=== PATIENT | female | born 1930 | race Caucasian/White ===

== ENCOUNTER 2017-04-12 11:48 | Emergency (ER) | payer MEDICARE, BC ==
[2017-04-12] MEDS ORDERED: Sodium Chloride 0.9% 10 ML Syringe FLUSH PRN (12:49)
[2017-04-12] MEDS ORDERED: fentaNYL 100 MCG/2 ML SDV IVPUSH ONE ×2 (12:50→15:28)
[2017-04-12] MEDS ORDERED: LORazepam 2 MG/ML MDV IVPUSH ONE (12:51)
--- NOTE | 2017-04-12 15:24 | EDM.PDOC ---
ED HPI GENERAL MEDICAL PROBLEM - General Chief Complaint: Upper Extremity Injury/Pain Stated Complaint: R shoulder pain post fall Time Seen by Provider: 04/12/17 11:55 Source of Information: Reports: Patient History Limitations: Reports: No Limitations - History of Present Illness INITIAL COMMENTS - FREE TEXT/NARRATIVE: Pt. was going to get her hair done and tripped, falling forward. She states that her arms were outstretched and denies striking her head. She states that the tip of her nose struck the edge of the counter, but states it was only the soft tissue. She denies any facial bone injury or neck pain. Pt. states that her only complaint is that of severe R shoulder pain. Pt. is scheduled to have a L total knee replacement performed by Dr. Horowitz at [place] [facility]: Today Location: Reports: Upper Extremity, Right Quality: Reports: Sharp, Stabbing Severity: Severe Improves with: Reports: Immobilization Worsens with: Reports: Movement Context: Reports: Trauma - Related Data Allergies Allergy/AdvReac Type Severity Reaction Status Date / Time aspirin Allergy Other Verified 04/12/17 12:03 naproxen [From Aleve] Allergy Other Verified 04/12/17 12:03 Home Meds: Home Meds Acetaminophen/HYDROcodone [[place] 325-5 MG] 1 tab PO Q6H PRN 04/12/17 [History] Alendronate Sodium [Fosamax] 70 mg PO Q7D 04/12/17 [History] Calcium Carbonate/Vitamin D3 [Calcium 500 + Vit D 200 Caplet] 2 each PO ACBREAKFAST 04/12/17 [History] Fish Oil/[place]-3 Fatty Acids [Fish Oil] 1 each PO DAILY 04/12/17 [History] Hydrochlorothiazide 25 mg PO DAILY 04/12/17 [History] Levothyroxine 112 mcg PO DAILY 04/12/17 [History] Meloxicam [Mobic] 7.5 mg PO DAILY PRN 04/12/17 [History] Multivitamin with Minerals [Multiple Vitamin] 1 tab PO DAILY 04/12/17 [History] Potassium Chloride 20 meq PO DAILY 04/12/17 [History] amLODIPine [Norvasc] 10 mg PO BEDTIME 04/12/17 [History] Past Medical History Cardiovascular History: Reports: Hypertension - Past Surgical History Musculoskeletal Surgical History: Reports: Knee Replacement Social & Family History - Tobacco Use Smoking Status *Q: Unknown Ever Smoked Review of Systems - Review of Systems Review Of Systems: See Below Constitutional: Reports: No Symptoms Eyes: Reports: No Symptoms Ears: Reports: No Symptoms Nose: Reports: Epistaxis, Other (hit tip of nose on counter) Mouth/Throat: Reports: No Symptoms Respiratory: Reports: No Symptoms Cardiovascular: Reports: No Symptoms GI/Abdominal: Reports: No Symptoms Genitourinary: Reports: No Symptoms Musculoskeletal: Reports: Shoulder Pain (R shoulder pain) Skin: Reports: No Symptoms Neurological: Reports: No Symptoms Psychiatric: Reports: No Symptoms ED EXAM, GENERAL - Physical Exam Exam: See Below General Appearance: Alert, WD/WN, No Apparent Distress Nose: Normal Inspection, Normal Mucosa, Other (mild dried blood from L nare with evidence of previous epistaxis from that nare). No: Nasal Tenderness Head: Atraumatic, Normocephalic Neck: Normal Inspection, Supple, Non-Tender, Full Range of Motion Respiratory/Chest: No Respiratory Distress, Lungs Clear, Normal Breath Sounds, No Accessory Muscle Use, Chest Non-Tender Cardiovascular: Normal Peripheral Pulses, Regular Rate, Rhythm, No Edema, No Gallop, No JVD, No Murmur, No Rub Peripheral Pulses: 3+: Brachial (L), Brachial (R), Radial (L), Radial (R) Back Exam: Normal Inspection, Full Range of Motion, NT Extremities: Normal Inspection, Normal Range of Motion, Non-Tender, Normal Capillary Refill, No Pedal Edema Neurological: Alert, Oriented, CN II-XII Intact, Normal Cognition, Normal Gait, Normal Reflexes, No Motor/Sensory Deficits Psychiatric: Normal Affect, Normal Mood Skin Exam: Warm, Dry, Intact, Normal Color, No Rash Course - Vital Signs Last Recorded V/S: Last Vital Signs Temp 35.9 C 04/12/17 11:50 Pulse 75 04/12/17 14:29 Resp 14 04/12/17 14:29 BP 126/74 04/12/17 14:29 Pulse Ox 97 04/12/17 14:29 - Orders/Labs/Meds Orders: Active Orders 24 hr Category Date Time Status Shoulder 1V Rt [CR] Stat Exams 04/12/17 13:49 Taken Shoulder Comp Rt [CR] Stat Exams 04/12/17 12:22 Taken Sodium Chloride 0.9% [Saline Flush] Med 04/12/17 12:49 Active 10 ml FLUSH ASDIRECTED PRN Peripheral IV Insertion Adult [OM.PC] Routine Oth 04/12/17 12:50 Ordered Medication Orders Sodium Chloride (Saline Flush) 10 ml FLUSH ASDIRECTED PRN PRN Reason: Keep Vein Open Meds: Medications Generic Name Dose Route Start Last Admin Trade Name Freq PRN Reason Stop Dose Admin Sodium Chloride 10 ml 04/12/17 12:49 Saline Flush FLUSH ASDIRECTED PRN Keep Vein Open Discontinued Medications Generic Name Dose Route Start Last Admin Trade Name Freq PRN Reason Stop Dose Admin Fentanyl 50 mcg 04/12/17 12:50 04/12/17 13:06 Sublimaze IVPUSH 04/12/17 12:51 50 mcg ONETIME ONE Administration Fentanyl 100 mcg 04/12/17 15:28 Sublimaze IVPUSH 04/12/17 15:29 ONETIME ONE Lorazepam 1 mg 04/12/17 12:51 04/12/17 13:07 Ativan IVPUSH 04/12/17 12:52 1 mg ONETIME ONE Administration Departure - Departure Time of Disposition: 15:05 Disposition: Home, Self-Care 01 Condition: Good Clinical Impression: Closed anterior dislocation of right shoulder - Discharge Information Instructions: Shoulder Dislocation, [id number] Referrals: Radha Fontanez MD [Primary Care Provider] - Forms: ED Department Discharge Additional Instructions: Keep sling on for 10 days, unless changing clothes or bathing. Use your [place] tablets for pain control. You will be sleepy for a few hours due to the medications that you were given. You can probably follow-up with your orthopedic surgeon for this dislocation at your post op recheck. Otherwise, follow-up with your primary care provider in 10 -14 days. - My Orders Last 24 Hours: My Active Orders 04/12/17 12:22 Shoulder Comp Rt [CR] Stat 04/12/17 12:49 Sodium Chloride 0.9% [Saline Flush] 10 ml FLUSH ASDIRECTED PRN 04/12/17 12:50 Peripheral IV Insertion Adult [OM.PC] Routine 04/12/17 13:49 Shoulder 1V Rt [CR] Stat - Assessment/Plan Last 24 Hours: My Active Orders 04/12/17 12:22 Shoulder Comp Rt [CR] Stat 04/12/17 12:49 Sodium Chloride 0.9% [Saline Flush] 10 ml FLUSH ASDIRECTED PRN 04/12/17 12:50 Peripheral IV Insertion Adult [OM.PC] Routine 04/12/17 13:49 Shoulder 1V Rt [CR] Stat Assessment:: R anterior shoulder dislocation Plan: I did attempt to call Dr. Horowitz to alert him about this incident. He is scheduled to replace her L knee next week. Obviously, the pt. will need to use a walker post-op which will be impossible for the next 10-14 days as she is currently in a sling. I am awaiting his phone call at this time.
== END 2017-04-12 15:05 | disposition home or self-care (01) ==
LOC: VM.ED 11:48
DX: S43.014A Anterior dislocation of right humerus, initial encounter (principal); I10 Essential (primary) hypertension; Z88.8 Allergy status to other drugs, medicaments and biological substances; Z88.6 Allergy status to analgesic agent; Z79.899 Other long term (current) drug therapy; W01.198A Fall on same level from slipping, tripping and stumbling with subsequent striking against other object, initial encounter
CPT/HCPCS: 73020; 73030; 96374; 96375; 99284; J2060; J3010; 23650

== ENCOUNTER 2018-04-27 17:09 | Emergency (ER) | payer MEDICARE, BC ==
--- NOTE | 2018-04-27 17:21 | EDM.PDOC ---
ED HPI GENERAL MEDICAL PROBLEM - General Chief Complaint: Back Pain or Injury Stated Complaint: Fall at home; Upper and lower back pain Time Seen by Provider: 04/27/18 17:17 Source of Information: Reports: Patient, EMS Notes Reviewed, RN, RN Notes Reviewed History Limitations: Reports: No Limitations - History of Present Illness INITIAL COMMENTS - FREE TEXT/NARRATIVE: Patient is brought to the emergency room at [facility] via EMS. The patient apparently fell at home. The patient states she was on the commode when she fell forward hitting her head on the floor. The patient states that she laid there for quite some time. The patient was last seen around 1:30 and was found began around 4:30. The patient states she has some tenderness between the shoulder blades and lower back. The patient does not have any numbness tingling or paresthesia to any affected extremity. Patient denies any LOC or head injury/ trauma. Patient denies any bowel or bladder dysfunction or incontinence. Onset: Today Onset Date: 04/27/18 Onset Time: 13:30 - Related Data Allergies Allergy/AdvReac Type Severity Reaction Status Date / Time aspirin Allergy Shortness Verified 04/27/18 17:27 of Breath naproxen [From Aleve] AdvReac Nausea Verified 04/27/18 17:27 Home Meds: Home Meds Alendronate Sodium [Fosamax] 70 mg PO Q7D 04/12/17 [History] Calcium Carbonate/Vitamin D3 [Calcium 500 + Vit D 200 Caplet] 2 each PO ACBREAKFAST 04/12/17 [History] Hydrochlorothiazide 25 mg PO DAILY 04/12/17 [History] Multivitamin with Minerals [Multiple Vitamin] 1 tab PO DAILY 04/12/17 [History] Potassium Chloride 20 meq PO DAILY 04/12/17 [History] amLODIPine [Norvasc] 5 mg PO BEDTIME 04/12/17 [History] Acetaminophen [Tylenol Extra Strength] 1,000 mg PO Q4H PRN 11/04/17 [History] Docusate Sodium [Colace] 100 mg PO DAILY 11/04/17 [History] Ferrous Sulfate 325 mg PO DAILY 11/04/17 [History] Magnesium Oxide 400 mg PO DAILY 11/04/17 [History] Polyethylene Glycol 3350 [MiraLAX] 17 gm PO DAILY PRN 11/04/17 [History] Acetaminophen/HYDROcodone [[place] 325-5 MG] 1 tab PO TID PRN 02/11/18 [History] Levothyroxine 150 mcg PO ACBREAKFAST 02/11/18 [History] Dexamethasone 8 mg PO ASDIRECTED 04/27/18 [History] Lidocaine/Prilocaine [EMLA Crm] 5 gm TP ASDIRECTED PRN 04/27/18 [History] Nitrofurantoin Monohyd/M-Cryst [Macrobid 100 mg Capsule] 100 mg PO BID 6 Days # 12 capsule 04/27/18 [Rx] Prochlorperazine Maleate [Compazine] 10 mg PO QID 04/27/18 [History] Past Medical History HEENT History: Reports: Impaired Vision, Macular Degeneration, Other (See Below) Other HEENT History: legally blind Cardiovascular History: Reports: Hypertension, Other (See Below) Other Cardiovascular History: periph. edema Respiratory History: Reports: None Gastrointestinal History: Reports: Cholelithiasis, Chronic Constipation Genitourinary History: Reports: Other (See Below) Other Genitourinary History: cystocele, midline, hematuria, unspecified BUSINESS LINE MANAGER History: Reports: Other (See Below) Other BUSINESS LINE MANAGER History: fibrocystic breast Musculoskeletal History: Reports: Back Pain, Chronic, Osteoarthritis, Osteoporosis, Other (See Below) Other Musculoskeletal History: shoulder dislocation Neurological History: Reports: Other (See Below) Other Neuro History: RLS Psychiatric History: Reports: Other (See Below) Other Psychiatric History: pain medication agreement signed Endocrine/Metabolic History: Reports: Other (See Below) Other Endocrine/Metabolic History: hyperglycemia, hypomagnesemia, hyponatremia, hypokalemia Hematologic History: Reports: Anemia, Iron Deficiency Other Hematologic History: iron deficiency anemia. hypomanesemia. hyponatremia. thrombocytosis. acute blood loss anemia. hypokalemia Oncologic (Cancer) History: Reports: Thyroid - Past Surgical History Female Surgical History: Reports: Other (See Below) Other Musculoskeletal Surgeries/Procedures:: left rotator cuff repair ED ROS GENERAL - Review of Systems Review Of Systems: See Below Constitutional: Denies: Fever, Chills Respiratory: Denies: Shortness of Breath, Cough Cardiovascular: Denies: Chest Pain, Palpitations GI/Abdominal: Denies: Abdominal Pain, Nausea, Vomiting Musculoskeletal: Reports: Neck Pain, Shoulder Pain, Back Pain Skin: Reports: Wound (Left upper shoulder pressure ulcer, prior to presentation) Neurological: Denies: Numbness, Paresthesia, Tingling ED EXAM, GENERAL - Physical Exam Exam: See Below Exam Limited By: No Limitations General Appearance: Alert, No Apparent Distress Ears: Normal External Exam, Normal Canal, Normal TMs Ear Exam: Bilateral Ear: TM normal Head: Atraumatic, Normocephalic Neck: Supple, Full Range of Motion, Tender Midline Respiratory/Chest: No Respiratory Distress, Lungs Clear, Normal Breath Sounds Cardiovascular: Normal Peripheral Pulses, Regular Rate, Rhythm GI/Abdominal: Normal Bowel Sounds, Soft, Non-Tender Back Exam: Normal Inspection, Paraspinal Tenderness (lower) Neurological: Alert, Oriented Skin Exam: Warm, Dry, Normal Color, Wound/Incision (Unstageable posterior left shoulder pressure ulcer) Course - Vital Signs Last Recorded V/S: Last Vital Signs Temp 36.6 C 04/27/18 17:09 Pulse 85 04/27/18 17:09 Resp 18 04/27/18 17:09 BP 160/108 H 04/27/18 17:09 Pulse Ox 97 04/27/18 17:09 - Orders/Labs/Meds Orders: Active Orders 24 hr Category Date Time Status Cervical Spine wo Cont [CT] Stat Exams 04/27/18 17:16 Taken Lumbar Spine wo Cont [CT] Stat Exams 04/27/18 17:16 Ordered Thoracic Spine wo Cont [CT] Stat Exams 04/27/18 17:16 Taken CULTURE URINE [RM] Stat Lab 04/27/18 18:45 Received Labs: Laboratory Tests 04/27/18 04/27/18 04/27/18 Range/Units 17:40 17:40 17:40 WBC 24.7 H* (4.0-10.0) x10^3/uL RBC 5.17 (4.00-5.50) x10^6/uL Hgb 14.9 (12.0-16.0) g/dL Hct 42.9 (33.0-47.0) % MCV 83.0 (78.0-93.0) fL MCH 28.8 (26.0-32.0) pg MCHC 34.7 (32.0-36.0) g/dL RDW Coeff of Ba 24.5 H (10.0-15.0) % Plt Count 547 H (130-400) x10^3/uL Add Manual Diff Yes Neutrophils % (Manual) 75 (50-80) % Lymphocytes % (Manual) 13 L (25-50) % Reactive Lymphs % 4 H (0) % Monocytes % (Manual) 8 (2-11) % Smudge Cells Rare H Platelet Estimate Adequate Anisocytosis 3+ marked H Target Cells 3+ marked H Ovalocytes 1+ slight H Sodium 133 L (136-145) mmol/L Potassium 3.3 L (3.5-5.1) mmol/L Chloride 91 L (98-107) mmol/L Carbon Dioxide 36 H (21-32) mmol/L Anion Gap 9.3 L (10-20) mmol/L BUN 19 H (7-18) mg/dL Creatinine 0.9 (0.55-1.02) mg/dL Est Cr Clr Drug Dosing TNP Estimated GFR (MDRD) 59 Glucose 114 H (74-106) mg/dL Lactic Acid 2.4 H* (0.4-2.0) mmol/L Calcium 9.0 (8.5-10.1) mg/dL Creatine Kinase 72 (26-192) U/L C-Reactive Protein (<=0.9) mg/dL Urine Color (YELLOW) Urine Appearance (CLEAR) Urine pH (5.0-8.0) Ur Specific [place] Urine Protein (NEGATIVE) mg/dL Urine Glucose (UA) (NEGATIVE) mg/dL Urine Ketones (NEGATIVE) mg/dL Urine Occult Blood (NEGATIVE) Urine Nitrite (NEGATIVE) Urine Bilirubin (NEGATIVE) Urine Urobilinogen (0.2) EU/dL Ur Leukocyte Esterase (NEGATIVE) Urine RBC (NOT SEEN) /HPF Urine WBC (NOT SEEN) /HPF Ur Squamous Epith Cells (NEGATIVE) /HPF Urine Bacteria (NEGATIVE) /HPF Urine Mucus (NEGATIVE) /LPF 04/27/18 04/27/18 Range/Units 17:40 18:45 WBC (4.0-10.0) x10^3/uL RBC (4.00-5.50) x10^6/uL Hgb (12.0-16.0) g/dL Hct (33.0-47.0) % MCV (78.0-93.0) fL MCH (26.0-32.0) pg MCHC (32.0-36.0) g/dL RDW Coeff of Ba (10.0-15.0) % Plt Count (130-400) x10^3/uL Add Manual Diff Neutrophils % (Manual) (50-80) % Lymphocytes % (Manual) (25-50) % Reactive Lymphs % (0) % Monocytes % (Manual) (2-11) % Smudge Cells Platelet Estimate Anisocytosis Target Cells Ovalocytes Sodium (136-145) mmol/L Potassium (3.5-5.1) mmol/L Chloride (98-107) mmol/L Carbon Dioxide (21-32) mmol/L Anion Gap (10-20) mmol/L BUN (7-18) mg/dL Creatinine (0.55-1.02) mg/dL Est Cr Clr Drug Dosing Estimated GFR (MDRD) Glucose (74-106) mg/dL Lactic Acid (0.4-2.0) mmol/L Calcium (8.5-10.1) mg/dL Creatine Kinase (26-192) U/L C-Reactive Protein 2.3 H (<=0.9) mg/dL Urine Color Light yellow (YELLOW) Urine Appearance Slightly cloudy H (CLEAR) Urine pH 7.5 (5.0-8.0) Ur Specific [place] 1.020 Urine Protein Negative (NEGATIVE) mg/dL Urine Glucose (UA) Negative (NEGATIVE) mg/dL Urine Ketones Negative (NEGATIVE) mg/dL Urine Occult Blood Negative (NEGATIVE) Urine Nitrite Negative (NEGATIVE) Urine Bilirubin Negative (NEGATIVE) Urine Urobilinogen 0.2 (0.2) EU/dL Ur Leukocyte Esterase Small H (NEGATIVE) Urine RBC Not seen (NOT SEEN) /HPF Urine WBC 5-10 H (NOT SEEN) /HPF Ur Squamous Epith Cells Few H (NEGATIVE) /HPF Urine Bacteria Many H (NEGATIVE) /HPF Urine Mucus Not seen (NEGATIVE) /LPF Meds: Medications Discontinued Medications Generic Name Dose Route Start Last Admin Trade Name Freq PRN Reason Stop Dose Admin Nitrofurantoin Macrocrystals 1 packet 04/27/18 19:04 Take Home: Nitrofur [place]/Ma 100 Mg, 2 Pack PO 04/27/18 19:05 ONETIME ONE - Radiology Interpretation Free Text/Narrative:: CT C Spine: No acute fractures CT Thoracic: No acute fractures CT Lumbar: No acute fractures See scanned report in EMR CT Results Date: 04/27/18 CT Results Time: 19:31 Departure - Departure Time of Disposition: 19:32 Disposition: Home, Self-Care 01 Condition: Good Clinical Impression: Contusion of muscle, Acute low back pain due to trauma Fall Qualifiers: Encounter type: initial encounter Qualified Code(s): W19.XXXA - Unspecified fall, initial encounter UTI (urinary tract infection) Qualifiers: Urinary tract infection type: acute cystitis Hematuria presence: without hematuria Qualified Code(s): N30.00 - Acute cystitis without hematuria - Discharge Information *PRESCRIPTION DRUG MONITORING PROGRAM REVIEWED*: Not Applicable *COPY OF PRESCRIPTION DRUG MONITORING REPORT IN PATIENT ANAM: Not Applicable Prescriptions: Nitrofurantoin Monohyd/M-Cryst [Macrobid 100 mg Capsule] 100 mg PO BID 6 Days # 12 capsule Instructions: Musculoskeletal Pain, Back Injury Prevention Referrals: Radha Fontanez MD [Primary Care Provider] - Forms: ED Department Discharge Additional Instructions: 1. Stay well hydrated and rest 2. Use pain medication at home 3. LOTS of water 4. Use heating pad to painful areas 5. See your PCP later this week for a recheck - Problem List Review Problem List Initiated/Reviewed/Updated: Yes - My Orders Last 24 Hours: My Active Orders 04/27/18 17:16 Cervical Spine wo Cont [CT] Stat Lumbar Spine wo Cont [CT] Stat Thoracic Spine wo Cont [CT] Stat 04/27/18 18:45 CULTURE URINE [RM] Stat - Assessment/Plan Last 24 Hours: My Active Orders 04/27/18 17:16 Cervical Spine wo Cont [CT] Stat Lumbar Spine wo Cont [CT] Stat Thoracic Spine wo Cont [CT] Stat 04/27/18 18:45 CULTURE URINE [RM] Stat Assessment:: Fall at home Muscle contusion Leukocytosis 2/2 gastric cancer Dehydration Plan: Labs and CT scans discussed with patient and family. WBC and lactic elevated 2/ 2 to gastric cancer; patient does not meet true sepsis criteria. Recommend the patient stay very well hydrated with lots of water. CK is normal, no rhabdo. Continue with same pain medications at home. Follow up with Dr. Fontanez this week for a recheck. UA weakly positive. Will treat with Macrobid for 7 days given immunocompromised state.
[2018-04-27 18:06] LABS: CHLORIDE,CL 91 mmol/L (98-107); SODIUM,NA 133 mmol/L (136-145)
[2018-04-27 18:08] LABS: ANION GAP 9.3 mmol/L (10-20)
[2018-04-27] MEDS ORDERED: Take Home: Nitrofurantoin Monohydrate/Macrocrystalline 100 MG, 2 Cap Pack PO ONE (19:04)
--- NOTE | 2018-04-28 09:36 | CT ---
[id number] CT/CT Lumbar Spine WO IV; [id number] CT/CT Cervical Spine WO IV; [id number] CT/CT Thoracic Spine WO IV EXAM: CT Cervical Spine WO IV, CT Thoracic Spine WO IV, CT Lumbar Spine WO IV INDICATION: Fall. COMPARISON: CT of the abdomen and pelvis from April 22, 2018. DISCUSSION: No acute fracture in the cervical, thoracic, or lumbar spine. Dextroconvexity centered in the thoracolumbar region with spondylosis diffusely throughout the spine. Findings include advanced facet joint arthropathy in the lumbar spine resulting in grade 1 anterolisthesis of L3-4 and L4-5. Numerous levels of moderate to advanced degenerative disc disease in the cervical, thoracic, and lumbar spine. Bone mineralization is diffusely decreased. No significant soft tissue abnormality. Refer to report of CT abdomen/pelvis from April 22, 2018 for complete description of findings. IMPRESSION: No acute findings in the cervical, thoracic, or lumbar spine. Kyle Hubbard MD 04/28/18 0934 Thank you for allowing us to participate in the care of your patient.
== END 2018-04-27 19:55 | disposition home or self-care (01) ==
LOC: VM.ED 17:09
DX: S30.0XXA Contusion of lower back and pelvis, initial encounter (principal); N30.00 Acute cystitis without hematuria; L89.129 Pressure ulcer of left upper back, unspecified stage; I10 Essential (primary) hypertension; Z79.899 Other long term (current) drug therapy; Z88.6 Allergy status to analgesic agent; Z88.8 Allergy status to other drugs, medicaments and biological substances; W19.XXXA Unspecified fall, initial encounter; Y92.009 Unspecified place in unspecified non-institutional (private) residence as the place of occurrence of the external cause
CPT/HCPCS: 36415; 72125; 72128; 72131; 80048; 81001; 82550; 83605; 85025; 86140; 87086; 87088; 87186; 99284; 99284-GF; A9270-GY